=== PATIENT | female | born 1980 | race Caucasian/White ===

== ENCOUNTER 2023-07-19 09:12 | Day surgery (SDC) | payer OTHER, SELFPAY ==
[2023-07-18 08:32] VITALS: BMI 41.5
--- NOTE | 2023-07-19 | PATH_ITS ---
[facility] Accession Number: [id number] No. of containers..02 Tissue . 01 Material submitted: . PART A: endometrium - ENDOMETRIAL CURETTINGS PART B: endocervix - ENDOCERVICAL CURETTINGS . 01 Diagnosis: A. Endometrium, Curettings: Fragments of benign proliferative phase endometrium with breakdown changes. Negative for significant cytologic atypia, hyperplasia, and malignancy. Benign endocervical tissue also present. . B. Endocervix, Curettings: Benign endocervical tissue. Negative for dysplasia and malignancy. MRV 07/24/2023 1644 Local . 01 Electronically signed: . Camila Benton MD, Pathologist NPI- [id number] . 01 Gross description: . Part A: ENDOMETRIAL CURETTINGS: Received in formalin are minute fragments of mucoid and hemorrhagic material measuring 1.2 x 1.2 x 0.4 cm in aggregate. Submitted in toto in 1 cassette. Part B: ENDOCERVICAL CURETTINGS: Received in formalin are minute fragments of mucoid and hemorrhagic material measuring 0.5 x 0.5 x 0.2 cm in aggregate. Submitted in toto in 1 cassette. /JODIE 07/20/2023 1848 Local . 01 Pathologist provided ICD-10: N92.4, F52.5 . 01 CPT . 151703, 204116 Specimen Comment: A courtesy copy of this report has been sent to [phone] Performed at: 01 [facility] [address] [place] [address], [place], [place] [id number] MD Paramjit Mckenzie MD Phone: [phone]
[2023-07-19 09:33] VITALS: BP 140/85; PULSE 85; RESP 16; TEMP 36.4; O2SAT 100; BMI 41.5
[2023-07-19] MEDS: LACTATED RINGERS 1,000 ML 150 ML IV (09:52)
[2023-07-19] MEDS: SCOPOLAMINE 1 PATCH TOP (09:53)
--- NOTE | 2023-07-19 10:14 | PM.PREOP ---
Pre-operative Note COVID-19 COVID-19 status: Not tested Interval Note History & Physical reviewed/Exam performed by Physician: Yes Changes to H&P: No
--- NOTE | 2023-07-19 10:15 | P.HPOB_ITS ---
History of Present Illness History of Present Illness Reason for admission: vaginal bleeding Narrative: Jessica is a 43-year-old A1, LMP 04/25/2023 who presents in referral from [facility] in [place] for progressively heavy menses associated with severe PMS since her 2nd in 2015. Menarche occurred at age 10 and the patient was on oral contraceptives for a number of years for menstrual regulation. When she was off oral contraceptives however her menses were extremely irregular and following her last delivery in 2015, her had a vasectomy performed and therefore she herself no longer uses any form of control. Her menses now are occurring at about a 21 day interval and lasting at least 5-7 days with heavy flow, accidents, and passage of clots. In addition for at least a week prior to each episode of bleeding, she has severe PMS with profound mood changes which improve at the onset of her menses and also severe cramping for a week prior to her menses with the cramping continuing virtually through the entire menses. The patient has not had any pelvic imaging or endometrial biopsy to this point because she has severe vaginismus and does not tolerate pelvic exams at all. Her last Pap, performed after her last delivery, was extremely difficult and she is still traumatized by the experience. [place] is possible but all other vaginal touching or attempts at vaginal entry provoked severe, uncontrollable muscle spasms and her highly traumatic. Patient had a D&C performed in 2013 following a missed/incomplete AB and she also remains traumatized from that experienced. The patient does not experience intermenstrual bleeding or postcoital bleeding, but does have a 3 generation history of uterine cancer. Her great grandmother of her disease in her late 50s or early 60s, her grandmother developed uterine cancer in her late 50s, and her mother also developed uterine cancer in her 50s. The patient is understandably concerned about the possibility her bleeding being associated with the development or existence of endometrial carcinoma. Because of vasomotor symptoms and extreme mood instability, the patient was initiated on transdermal estradiol and oral progesterone by her provider at [facility]. While the estradiol has provided extremely beneficial results insofar as mitigating her vasomotor symptoms and stabilizing her moods, she could not tolerate the progesterone and therefore discontinued it. After counseling and consent duration of all options, the patient has agreed to proceed with hysteroscopy and D&C at which time Pap smear will also be performed. She is admitted now for these procedures. [facility] Medical History (Updated 07/18/23 @ 08:38 by Rosario Ladd RN) HTN (hypertension) Anxiety Depression Surgical History (Updated 07/18/23 @ 08:38 by Rosario Ladd RN) Hx of dilation and curettage (2013) History of 2 sections Hx of cholecystectomy (2014) Social History household members: spouse Smoking Status: Former smoker alcohol intake: current Meds Home Medications and Allergies Home Medications Medication Instructions Recorded Confirmed Type clonazepam 0.125 mg disintegrating 0.125 mg PO DAILY 05/24/23 07/19/23 History tablet estradiol 0.05 mg/24 hr semiweekly 1 patch transdermal 2XW 05/24/23 07/19/23 History transdermal patch fluoxetine 20 mg capsule 20 mg PO DAILY 05/24/23 07/19/23 History lamotrigine 100 mg tablet 100 mg PO DAILY 05/24/23 07/19/23 History lisinopril 5 mg tablet 5 mg PO DAILY 05/24/23 07/19/23 History omeprazole 20 mg capsule,delayed 20 mg PO DAILY 05/24/23 07/19/23 History release semaglutide 0.25 mg or 0.5 mg (2 0.25 mg SUBCUT QWEEK 05/24/23 07/19/23 History mg/3 mL) subcutaneous pen injector (Ozempic) Allergies Allergy/AdvReac Type Severity Reaction Status Date / Time No Known Drug Allergies Allergy Unverified 05/24/23 08:56 Review of Systems Review of Systems Narrative: Problem-specific ROS positives included in HPI Exam Vital Signs (past 8 hours): - 07/19/23 09:33 Temperature 97.5 F L Pulse Rate 85 Respiratory Rate 16 Blood Pressure 140/85 Pulse Oximetry 100 Oxygen Delivery Method Room Air Oxygen Delivery Method Room Air Const General: cooperative and anxious Nutritional Appearance: average body habitus Orientation: alert and oriented x3 HENMT Head: normal to inspection, normocephalic and atraumatic Eyes General: appearance normal, both eyes and all related structures Resp Effort & Inspection: normal respiratory effort and able to speak in complete sentences Auscultation: clear to auscultation bilaterally Cardio Rate: regular rate Rhythm: regular rhythm Heart Sounds: S1 normal, S2 normal and no murmurs GI Inspection: normal to inspection Palpation: soft and no hepatosplenomegaly External Female Exam: other (Deferred per patient preference) Extrem Right lower extremity: normal to inspection Assessment & Plan Assessment and plan (1) Perimenopausal menorrhagia: Status: Acute (2) Vaginismus (not due to a general medical condition): Status: Acute (3) Family history of malignant neoplasm of endometrium: Status: Acute Plan Patient counseled regarding alternatives, risks, benefits, and potential complications associated with hysteroscopy and dilation and curettage uterus. In addition patient counseled regarding the need for Pap smear in that too will be performed at the time of surgery. With full understanding of the above, a written consent was executed, signed, witnessed this date. Time Spent With Patient Time with patient: less than 30 minutes
--- NOTE | 2023-07-19 10:59 | SUR.OPER ---
Lithotomy on padded OR bed, head on pillow, arms secured on padded arm boards at <90 degrees abduction. Legs secured in padded yellow fins stirrups.
[2023-07-19] MEDS: ACETAMINOPHEN IV 1,000 MG/100 ML VIAL 400 MG IV (11:09)
[2023-07-19 11:18] VITALS: BP 120/79; PULSE 80; RESP 22; TEMP 36.8; O2SAT 99
[2023-07-19 11:21] VITALS: BP 133/86; PULSE 86; RESP 15; TEMP 36.8; O2SAT 100
[2023-07-19 11:25] VITALS: BP 133/75; PULSE 81; RESP 12; TEMP 36.7; O2SAT 98
--- NOTE | 2023-07-19 11:27 | P.OP_ITS ---
Operative Date/Time/Diagnoses Date of procedure: 07/19/23 Time of procedure: 10:35 Pre-op diagnosis: Perimenopausal menorrhagia Vaginismus Family history of endometrial cancer Post-op diagnosis: same Procedure & Clinicians Procedure: Procedures Operation Date: 07/19/23 10:15 Actual Procedure Side Surgeon jesusita SABA with Possible Biopsy, D&C of the uterus, PAP smear, Hysteroscopy Gian Samayoa MD Indications: Jessica is a 43-year-old A1, LMP 04/25/2023 who presents in referral from [employer] in [place] for progressively heavy menses associated with severe PMS since her 2nd in 2015. Menarche occurred at age 10 and the patient was on oral contraceptives for a number of years for menstrual regulation. When she was off oral contraceptives however her menses were extremely irregular and following her last delivery in 2015, her had a vasectomy performed and therefore she herself no longer uses any form of control. Her menses now are occurring at about a 21 day interval and lasting at least 5-7 days with heavy flow, accidents, and passage of clots. In addition for at least a week prior to each episode of bleeding, she has severe PMS with profound mood changes which improve at the onset of her menses and also severe cramping for a week prior to her menses with the cramping continuing virtually through the entire menses. The patient has not had any pelvic imaging or endometrial biopsy to this point because she has severe vaginismus and does not tolerate pelvic exams at all. Her last Pap, performed after her last delivery, was extremely difficult and she is still traumatized by the experience. [place] is possible but all other vaginal touching or attempts at vaginal entry provoked severe, uncontrollable muscle spasms and her highly traumatic. Patient had a D&C performed in 2013 following a missed/incomplete AB and she also remains traumatized from that experienced. The patient does not experience intermenstrual bleeding or postcoital bleeding, but does have a 3 generation history of uterine cancer. Her great grandmother of her disease in her late 50s or early 60s, her grandmother developed uterine cancer in her late 50s, and her mother also developed uterine cancer in her 50s. The patient is understandably concerned about the possibility her bleeding being associated with the development or existence of endometrial carcinoma. Because of vasomotor symptoms and extreme mood instability, the patient was initiated on transdermal estradiol and oral progesterone by her provider at [facility]. While the estradiol has provided extremely beneficial results insofar as mitigating her vasomotor symptoms and stabilizing her moods, she could not tolerate the progesterone and therefore discontinued it. After counseling and consent duration of all options, the patient has agreed to proceed with hysteroscopy and D&C at which time Pap smear will also be performed. She is admitted now for these procedures. Surgeon: Gian Samayoa Anesthesia Type: General Operative Notes Findings: Bimanual examination under anesthesia is unremarkable with the uterus retroverted and normal in size and shape. The ovaries could not be palpated. The cervix appears unremarkable as does the endocervical canal. Within the endometrial cavity, the vast majority of the endometrial surface is bland but th ere were several irregularly shaped small polypoid growths within the endometrial cavity which were not removed hysteroscopically but rather with aggressive curettage of the endometrial cavity. Closure Type: not applicable Specimen(s): endometrial curettings and other (Endocervical curettings) Estimated blood loss (mL): 25 Blood products transfused: none Procedure in detail: A pre-surgical safety time-out was then taken in accordance with [facility] OR protocols. With the patient under general LMA in the modified dorsal lithotomy position, a medium Sandy speculum was placed in the vagina and a Pap smear obtained. ,The perineum, vagina, and lower abdomen were then prepped and draped in the usual fashion for hysteroscopy with D&C. A bivalve speculum was inserted in the vagina and the cervix visualized. The anterior lip of the cervix was grasped with a single-tooth tenaculum and the endocervical canal was then dilated to 6 mm diameter. Hysteroscope was placed through the endocervical canal into the endometrial cavity and the cavity was visualized. Findings within the endometrial cavity are detailed above. Both tubal ostia were visualized. The hysteroscope was then withdrawn and a fractional dilation and curettage was accomplished with separate pathologic specimen submitted for the endometrial and endocervical curettings. The tenaculum was then removed from the anterior lip of the cervix and no bleeding was encountered. The speculum was then removed from the vagina and the patient awakened from anesthesia. She was then transferred to the PACU for a period of observation and recovery having tolerated the procedure well. Complications: none Post-operative Condition: stable Disposition: PACU Plan for aftercare: Routine post-op care.
[2023-07-19 11:30] VITALS: BP 135/76; PULSE 80; RESP 18; O2SAT 99
== END 2023-07-19 11:47 | disposition home or self-care (01) ==
PROVIDERS: PCP Registered Nurse; Referring Provider Obstetrics & Gynecology; Visit Provider Obstetrics & Gynecology
PROC: 0UDB8ZZ Extraction of Endometrium, Via Natural or Artificial Opening Endoscopic (ICD-10-PCS; CPT 58558; principal; 2023-07-19 10:15)
DX: N92.0 Excessive and frequent menstruation with regular cycle (principal); F52.5 Vaginismus not due to a substance or known physiological condition; Z80.8 Family history of malignant neoplasm of other organs or systems
CPT/HCPCS: 58558; J0131; J1100; J1885; J2405; J2704; J3010; J3490

== ENCOUNTER 2023-10-25 08:07 | Day surgery (SDC) | payer OTHER, SELFPAY ==
[2023-10-22 09:50] VITALS: BMI 39.6
[2023-10-25] VITALS (11 sets, daily range): BP systolic 115–143; BP diastolic 69–85; PULSE 78–101; RESP 11–17; TEMP 36.2–36.4; O2SAT 90–98; BMI 39.6
--- NOTE | 2023-10-25 | PATH_ITS ---
[facility] Accession Number: [id number] No. of containers..01 Tissue . 01 Material submitted: . uterus - UTERUS WITH BILATERAL FALLOPIAN TUBES . 01 Diagnosis: A. Uterus, Bilateral Fallopian Tubes, Hysterectomy and Bilateral Salpingectomy: Myometrium with leiomyomata (1 cm). Late proliferative/early secretory-phase endometrium. Cervix with inflammation and extensive reactive changes. Serosa within normal limits. Bilateral fallopian tubes within normal limits. No evidence of dysplasia, significant cytologic atypia, or malignancy. MRV 10/29/2023 1515 Local . 01 Electronically signed: . Nurys Gunter MD, Pathologist NPI- [id number] . 01 Gross description: . The specimen is received in formalin labeled with the patient's named, , and uterus with bilateral fallopian tubes, and consists of an intact uterus (94 grams, 7.6 cm from superior to inferior, 6.9 cm from medial to lateral, 3.4 cm from the anterior to posterior), with attached cervix (2.6 x 2.5 cm), two unoriented, fimbriated fallopian tubes (5.9 x 0.4 cm and 4.6 x 0.4 cm respectively), with no additional adnexa. . The ectocervix is pink-ramos, smooth, and glistening with a circular os measuring 0.3 cm in diameter. A purple suture is identified at the 12 o'clock position with no orientation per the requisition. The entire paracervical margin is inked blue while the posterior paracervical margin is inked black. The serosa is armos and smooth with no evidence of hemorrhage or adhesion identified. The endocervical canal has ramos herringbone mucosa and measures 1.9 cm in length. The endometrial cavity measures 4.0 cm from cornu to cornu, and 4.5 cm in length with pink-ramos, velvety endometrium that averages 0.3 cm thick with no lesions identified. The myometrium is ramos and trabecular measuring up to 1.7 cm in maximum thickness with a white, whorled nodule measuring 1.0 cm in greatest dimension located submucosally with no hemorrhage or necrosis identified. . Both tubes have violaceous, smooth serosa with no cystic structures identified, and sectioning reveals unremarkable stellate lumen. . [employer] Instructor sections are submitted as follows: A1: Anterior cervix. A2: Posterior cervix. A3: Anterior full thickness section. A4: Posterior full thickness section. A5: Nodule. A6: Serosa. A7: Longer fallopian tube to include one-half of bisected fimbriae and cross-sections. A8: [place] fallopian tube to include one-half of bisected fimbriae and cross-sections. ([id number]) /ELIE 10/26/2023 0903 Local . 01 Pathologist provided ICD-10: N92.1 . 01 CPT . 243395 Specimen Comment: A courtesy copy of this report has been sent to [phone] Performed at: 01 [facility] [address] [place] [address] [facility], [place], [place] [id number] MD Paramjit Mckenzie MD Phone: [phone]
--- NOTE | 2023-10-25 07:39 | PM.PREOP ---
Pre-operative Note COVID-19 COVID-19 status: Not tested Interval Note History & Physical reviewed/Exam performed by Physician: Yes Changes to H&P: No
[2023-10-25] MEDS: LACTATED RINGERS 1,000 ML 42 ML IV (08:41)
[2023-10-25] MEDS: ACETAMINOPHEN 325 MG TABLET 975 MG PO (08:43)
[2023-10-25] MEDS: SCOPOLAMINE 1 PATCH TOP (08:43)
[2023-10-25] MEDS: CEFAZOLIN 2 GM/100 ML PREMIX 100 ML IV (09:47)
--- NOTE | 2023-10-25 10:15 | SUR.OPER ---
Lithotomy on padded OR bed, head on pillow, arms secured on padded arm boards at <90 degrees abduction. Legs secured in padded yellow fins stirrups.
[2023-10-25] MEDS: BUPIVACAINE 0.5% (PF) 30 ML, EPINEPHrine 0.15 MG INJ (10:26)
--- NOTE | 2023-10-25 12:07 | P.OP_ITS ---
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 Menarche occurred at age 10 and the patient was on oral contraceptives for a number of years for menstrual regulation. When she was off oral contraceptives however her menses were extremely irregular and following her last delivery in 2015, her had a vasectomy performed and therefore she herself no longer uses any form of control. Her menses now are occurring at about a 21 day interval and lasting at least 5-7 days with heavy flow, accidents, and passage of clots. In addition for at least a week prior to each episode of bleeding, she has severe PMS with profound mood changes which improve at the onset of her menses and also severe cramping for a week prior to her menses with the cramping continuing virtually through the entire menses. The patient has not had any pelvic imaging or endometrial biopsy to this point because she has severe vaginismus and does not tolerate pelvic exams at all. Her last Pap, performed after her last delivery, was extremely difficult and she is still traumatized by the experience. [place] is possible but all other vaginal touching or attempts at vaginal entry provoked severe, uncontrollable muscle spasms and her highly traumatic. Patient had a D&C performed in 2013 following a missed/incomplete AB and she also remains traumatized from that experienced. The patient does not experience intermenstrual bleeding or postcoital bleeding, but does have a 3 generation history of uterine cancer. Her great grandmother of her disease in her late 50s or early 60s, her grandmother developed uterine cancer in her late 50s, and her mother also developed uterine cancer in her 50s. The patient is understandably concerned about the possibility her bleeding being associated with the development or existence of endometrial carcinoma. Because of vasomotor symptoms and extreme mood instability, the patient was initiated on transdermal estradiol and oral progesterone by her provider at [facility]. While the estradiol has provided extremely beneficial results insofar as mitigating her vasomotor symptoms and stabilizing her moods, she could not tolerate the progesterone and therefore discontinued it. After counseling and consent duration of all options, the patient decided to proceed with hysteroscopy and D&C at which time Pap smear was also performed on 07/19/2023. The surgery was uncomplicated and pathology obtained showed no hyperplasia, atypia, or neoplasia. Unfortunately the patient's bleeding has continued unabated and she remains very concerned about her irregular and heavy bleeding as well as potential risk of developing endometrial carcinoma over time. Patient reassured that there was no evidence of developing endometrial carcinoma but that due to her history of anovulation, as well as her obesity, does place her at risk for subsequent development of endometrial carcinoma. Patient does not wish to consider progestin secreting IUD placement or Depo- Provera. In addition, she has no interest in exploring endometrial ablation as no assurance can be made that she may not one day develop endometrial carcinoma even though current testing is negative. After discussion of all options, the patient wishes very much to proceed with total laparoscopic hysterectomy and bilateral salpingectomy with ovarian preservation. She presents today for her scheduled surgery. Surgeon: Gian Samayoa Anesthesia Type: General Operative Notes Findings: TNS uterus with changes suggestive of adenomyosis. Both fallopian tubes and ovaries appear normal. There was scarring in the anterior cul-de-sac with no abnormalities in the posterior cul-de-sac and no endometriosis is seen in the pelvis. The remainder of the abdomen pelvis are normal to laparoscopic inspection. Closure Type: primary Specimen(s): left tube, right tube and uterus Applied: catheter Estimated blood loss (mL): 150 Blood products transfused: none Procedure in detail: With the patient in modified dorsal lithotomy position preparations were made by prepping and draping the patient in usual manner for vaginal surgery and insertion of Pressley catheter. A pre-surgical time-out was then taken in accordance with [facility]. A bivalve speculum was then placed in the vagina and the cervix visualized. The anterior lip of the cervix was then grasped with a single-tooth tenaculum. The uterus was sounded to 8 cm, the endocervical canal dilated slightly, and a [employer] uterine manipulator with a smal colpotomy cup was placed. The umbilicus was then infiltrated with 0.5% Marcaine with epinephrine. A 1 cm umbilical incision was made transversely and a Veress needle was used to insufflate the abdominal cavity with carbon dioxide. Once the abdomen was appropriately insufflated, a 5 mm trocar and sleeve were then placed through the umbilical incision. The scope was placed through the trocar and the initial assessment of the intra-abdominal contents carried out. A 2nd and 3rd 5 mm port was then placed 1st in the right mid quadrant from then the left mid quadrant by infiltration of the skin and subcutaneous tissues, a 1 cm transverse incision and insertion of the 5 mm bladeless port. Using a 3 puncture technique, the abdomen and pelvis were inspected laparoscopy and photographically documented. Uterus is mobilized with the [employer] manipulator and attention turned to the left adnexa. The distal tube was then grasped and the fimbria varicose divided after coagulation with the PowerSeal device. The dissection was then carried out toward the cornua and the fallopian tube amputated. The tube was removed through a 5 mm port and dissection was then carried down using the [employer] device so as to divide the utero-ovarian ligament and the round ligament with blunt and sharp dissection of the broad down to the level of the uterine artery. The uterine artery was then skeletonized after development of a bladder flap, coagulated, and divided. Once hemostasis was assured on the left side attention was turned to the right and the tube, utero-ovarian ligament, round ligament, and broad ligament were dissected in a fashion exactly the same as it had been on the left. The right uterine artery was then visualized after skeletonization and coagulated and divided. The uterus was seen to eulogio after coagulation of both your arteries and the cup was identified through the vaginal muscularis at its insertion with the body of the cervix. Circumferential excision of the vaginal cup was accomplished without difficulty using monopolar current and the uterus mobilized. The uterus was then removed through the vagina and a glove containing two 4x4 gauze was placed in the vagina to maintain the pneumoperitoneum. The vaginal cuff was inspected carefully and closed [id number] with 0 PDS stratafix barbed suture carefully incorporating the mucosal and fascial edges along with the uterosacral ligaments and cardinals. Hemostasis was excellent, and the pelvis inspected laparoscopically. The pelvis was inspected for any abnormality or bleeding, and the ureters were each seen to be peristalsing freely. With complete hemostasis assured, the pneumoperitoneum was vented and the ports removed. 20 cc of ropivacaine were placed in the post erior cul-de-sac. The 5 mm ports were removed after venting of the pneumoperitoneum and all of the 5 mm ports were then closed with 4-0 Monocryl on the skin using inverted interrupted sutures. Skin glue was placed and after the glue was dried, an appropriate dressing was applied. The case was then terminated, the patient awakened, and then transferred to PACU after having tolerated the procedure well. Complications: none Post-operative Condition: stable Disposition: PACU Plan for aftercare: Recovery in ambulatory surgery in discharge home later today if pain is under control and she is tolerating oral intake well.
[2023-10-25] MEDS: ONDANSETRON 4 MG/2 ML INJ IV (12:29)
[2023-10-25] MEDS: OXYCODONE IR 5 MG TABLET PO ×2 (12:29→20:19)
[2023-10-25] MEDS: hydrOXYzine 50 MG/ML INJ 25 MG IM (12:29)
[2023-10-25] MEDS: HYDROMORPHONE 1 MG INJ IV (12:30)
[2023-10-25] MEDS: LACTATED RINGERS 1,000 ML 100 ML IV ×2 (13:27→23:08)
--- NOTE | 2023-10-25 14:12 | PC.NURSE ---
Pt to room 225 at 1315 via bed from PACU. Pt oriented to room, call light, bed controls, and tv controls. IV infusing as ordered. Pt denies pain, nausea, or shortness of breath. Bed alarm on for safety. SCd's on and running. Pt agrees to call for assistance as needed.
[2023-10-25] MEDS: ACETAMINOPHEN 325 MG TABLET 650 MG PO ×2 (17:31→23:07)
[2023-10-25] MEDS: DOCUSATE 100 MG CAPSULE 200 MG PO (20:19)
[2023-10-25] MEDS: KETOROLAC 30 MG/ML VIAL IV (23:08)
[2023-10-26] MEDS: OXYCODONE IR 5 MG TABLET PO ×2 (03:34→10:25)
[2023-10-26 04:49] LABS: Add Manual Diff / Slide Review NO; Basophils Absolute Auto 0 /uL (0-100); Basophils Percent Auto 0.1 % (0-2); Eosinophils Absolute Auto 0 /uL (0-450); Eosinophils Percent Auto 0.1 % (2-4); Hemoglobin 10.2 g/dL (12.0-16.0); Lymphocytes Absolute Auto 1300 /uL (1100-4500); Lymphocytes Percent Auto 11.6 % (25-40); Mean Corpuscular Hemoglobin 25.7 PG (26-34); Mean Corpuscular Volume 77.9 fL (80-100); Monocytes Absolute Auto 700 /uL (0-900); Monocytes Percent Auto 5.9 % (3-14); Neutrophils Absolute Auto 9100 /uL (1500-7000); Neutrophils Percent Auto 82.3 % (50-75); Platelet Count 315 X10^3/uL (150-400); Red Blood Cell Count 3.98 X10^6/uL (4.0-5.2); Red Cell Distribution Width 16.3 % (11.6-14.8); White Blood Cell Count 11.1 X10^3/uL (4.5-11.0)
[2023-10-26] MEDS: KETOROLAC 30 MG/ML VIAL IV (05:40)
[2023-10-26] MEDS: PANTOPRAZOLE DR 20 MG TABLET PO (05:41)
[2023-10-26] MEDS: ACETAMINOPHEN 325 MG TABLET 650 MG PO (05:41)
[2023-10-26 08:17] VITALS: BP 123/65; PULSE 75
[2023-10-26] MEDS: FLUoxetine 20 MG CAPSULE PO (08:17)
[2023-10-26] MEDS: DOCUSATE 100 MG CAPSULE 200 MG PO (08:17)
[2023-10-26] MEDS: lisinopriL 5 MG TABLET 10 MG PO (08:17)
[2023-10-26] MEDS: lamoTRIgine 100 MG TABLET PO (08:17)
[2023-10-26] MEDS: METFORMIN HCL 500 MG TABLET PO (08:20)
--- NOTE | 2023-10-26 09:39 | PM.DS.1 ---
History of Present Illness History of Present Illness Date Patient Seen: 10/26/23 Time Patient Seen: 09:40 Chief complaint: TLH w/nika salpingectomy *OPB* Narrative: eJssica is a 43-year-old A1, LMP 10/01/2023 who presented originally in referral from [facility] Chief Security And Safety Officer in [place] for progressively heavy menses associated with severe PMS since her 2nd in 2016. Menarche occurred at age 10 and the patient was on oral contraceptives for a number of years for menstrual regulation. When she was off oral contraceptives however her menses were extremely irregular and following her last delivery in 2015, her had a vasectomy performed and therefore she herself no longer uses any form of control. Her menses now are occurring at about a 21 day interval and lasting at least 5-7 days with heavy flow, accidents, and passage of clots. In addition for at least a week prior to each episode of bleeding, she has severe PMS with profound mood changes which improve at the onset of her menses and also severe cramping for a week prior to her menses with the cramping continuing virtually through the entire menses. The patient has not had any pelvic imaging or endometrial biopsy to this point because she has severe vaginismus and does not tolerate pelvic exams at all. Her last Pap, performed after her last delivery, was extremely difficult and she is still traumatized by the experience. [place] is possible but all other vaginal touching or attempts at vaginal entry provoked severe, uncontrollable muscle spasms and her highly traumatic. Patient had a D&C performed in 2013 following a missed/incomplete AB and she also remains traumatized from that experienced. The patient does not experience intermenstrual bleeding or postcoital bleeding, but does have a 3 generation history of uterine cancer. Her great grandmother of her disease in her late 50s or early 60s, her grandmother developed uterine cancer in her late 50s, and her mother also developed uterine cancer in her 50s. The patient is understandably concerned about the possibility her bleeding being associated with the development or existence of endometrial carcinoma. Because of vasomotor symptoms and extreme mood instability, the patient was initiated on transdermal estradiol and oral progesterone by her provider at [facility] Gynecology. While the estradiol has provided extremely beneficial results insofar as mitigating her vasomotor symptoms and stabilizing her moods, she could not tolerate the progesterone and therefore discontinued it. After counseling and consent duration of all options, the patient decided to proceed with hysteroscopy and D&C at which time Pap smear was also performed on 07/19/2023. The surgery was uncomplicated and pathology obtained showed no hyperplasia, atypia, or neoplasia. Unfortunately the patient's bleeding has continued unabated and she remains very concerned about her irregular and heavy bleeding as well as potential risk of developing endometrial carcinoma over time. Patient reassured that there was no evidence of developing endometrial carcinoma but that due to her history of anovulation, as well as her obesity, does place her at risk for subsequent development of endometrial carcinoma. Patient does not wish to consider progestin secreting IUD placement or Depo-Provera. In addition, she has no interest in exploring endometrial ablation as no assurance can be made that she may not one day develop endometrial carcinoma even though current testing is negative. After discussion of all options, the patient wishes very much to proceed with total laparoscopic hysterectomy and bilateral salpingectomy with ovarian preservation. She presents today for her scheduled surgery. Discharge Providers Provider Discharge Date: 10/26/23 Primary care physician: Lindsay Morales PA-C Discharge provider: Gian Samayoa MD Summary Hospital Course Discharge Diagnosis: Perimenopausal menorrhagia Anemia due to chronic blood loss Hospital Course: The patient was admitted on 10/25/2023 and underwent an uneventful total laparoscopic hysterectomy with bilateral salpingectomy. Full details of the procedure well summarized on my operative note of that date. Following surgery the patient has done extremely well with prompt return of bowel and bladder function, she is ambulating independently, tolerating a regular diet, and her pain is well controlled with oral pain medications. She was discharged at this time to home in an afebrile normotensive condition after counseling regarding precautionary symptoms, limitations of activity, medications, and plans for follow-up which will be in 2 weeks. Preadmission out occlusion use and use [id number] Tylenol and/or ibuprofen as for pain relief. Status at Discharge Cognitive/behavioral status at discharge: oriented Functional status at discharge: independent ambulation Overall status at discharge: patient is progressing back to baseline Time Spent with Patient Time spent: Less than 30 minutes Exam Vital Signs (past 8 hours): - 10/26/23 08:17 Pulse Rate 75 Blood Pressure 123/65 Oxygen Delivery Method Room Air Oxygen Flow Rate 0 Const General: cooperative and comfortable Nutritional Appearance: average body habitus Orientation: alert and oriented x3 HENMT Head: normal to inspection, atraumatic and abrasion Ears: hearing grossly normal bilaterally Face and sinus: face symmetric Eyes General: appearance normal, both eyes and all related structures Conjunctivae: conjunctivae normal Sclera: sclerae normal EOM: EOM intact bilaterally Neck Neck: normal visual inspection Resp Effort & Inspection: normal respiratory effort and able to speak in complete sentences Auscultation: clear to auscultation bilaterally Cardio Rate: regular rate Rhythm: regular rhythm Heart Sounds: S1 normal, S2 normal and no murmurs GI Inspection: normal to inspection and incision (Surgical dressings clean and dry) Palpation: soft, no hepatosplenomegaly and tender (Mild, diffuse postsurgical tenderness) External Female Exam: other (No significant bleeding noted) Extrem General: no calf tenderness Psych Appearance: grossly normal Mental Status: mental status grossly normal Speech and Movement: speech and movement normal Mood: congruent mood Affect: normal affect Attitude: cooperative Thought Process: normal Thought Content: normal Judgment: judgment good Objective Labs 10/26/23 04:13 Labs: Laboratory Results - last 24 hr 10/26/23 04:13 WBC 11.1 H RBC 3.98 L Hgb 10.2 L Hct 31.0 L MCV 77.9 L MCH 25.7 L MCHC 33.0 RDW 16.3 H Plt Count 315 Neut % (Auto) 82.3 H Lymph % (Auto) 11.6 L [place] % (Auto) 5.9 Eos % (Auto) 0.1 L Baso % (Auto) 0.1 Neut # (Auto) 9100 H Lymph # (Auto) 1300 [place] # (Auto) 700 Eos # (Auto) 0 Baso # (Auto) 0 PFSH Medical History (Updated 07/18/23 @ 08:38 by Rosario Ladd RN) HTN (hypertension) Anxiety Depression Surgical History (Updated 07/18/23 @ 08:38 by Rosario Ladd RN) Hx of dilation and curettage (2013) History of 2 sections Hx of cholecystectomy (2014) Social History household members: spouse and children Smoking Status: Former smoker alcohol intake: current Discharge Assessment & Plan Assessment and Plan Assessment: Perimenopausal menorrhagia Anemia due to chronic blood loss Status post total laparoscopic hysterectomy with bilateral salpingectomy. Plan of Treatment: Continue routine postoperative care with follow-up planned for 2 weeks postop Discharge Plan Discharge Plan Patient Disposition: Home Provider Discharge Comment: Please review the written instructions you received when you were discharged from the hospital. Your follow-up appointment will be scheduled for 2 weeks after your surgery and I look forward to seeing you then. If however in the meanwhile you have any, concerns, or problems, please contact us through the office phone at [phone], or via the patient portal. Discharge orders & Medications Discharge Orders: Discharge (Order); Ordered 10/26/23 Ordered By: Gian Samayoa Prescriptions: Continued fluoxetine 20 mg capsule 20 mg PO DAILY lamotrigine 100 mg tablet 100 mg PO DAILY lisinopril 5 mg tablet 10 mg PO DAILY omeprazole 20 mg capsule,delayed release(DR/EC) 20 mg PO DAILY estradiol 0.05 mg/24 hr patch semiweekly 1 patch transdermal 2XW Rx Instructions: apply 1 patch for 3 days alternating with 1 patch for 4 days each week for 3 wks per 4-wk cycle metformin 500 mg Tablet 500 mg PO DAILY Follow up/Referrals: Lindsay Morales PA-C [Primary Care Provider] - Gian Samayoa MD [Physician] - Diet/Activity/Treatments Diet: Diet as Tolerated Activity: As tolerated Other treatments: Atot-bls-cvbpjrt Tylenol and/or ibuprofen may be used as needed for pain relief. Qacg-gcx-gimrqfb stool softeners and/MiraLax may be used as needed for constipation. Skin/Wound/Dressing Care Report to your healthcare provider any signs of infection, such as:: chills, fever, increased pain, unusual drainage and unusual redness Dressing: Dressings should be removed on the morning of 10/27/2023 Visit Report/Discharge Packet Instructions: DI for Hysterectomy, DI for Laparoscopy Stand Alone Forms: Surgery Discharge Print Language: Austrian Discharge Data Primary Care Provider: Lindsay Morales Attending Provider: Gian Samayoa Quality VTE Deep Vein Thrombosis/Pulmonary Embolism Present on Admission: No
--- NOTE | 2023-10-26 10:55 | PC.NURSE ---
Discharge: Pt A&Ox4, VSS, ambulating IND. IV d/c'd, voiding well. Medicated for pain. Questions answered, discharge paperwork discussed, paperwork signed. Pt wheeled via WC to private vehicle by this RN at approximately 10:30.
--- NOTE | 2023-10-26 12:24 | CM.DANOTE ---
Patient is a 43 yo female who was admitted on 10/25/23 for Total Hysterectomy. Pt has Probiod[employer] for insurance and her PCP is Lindsay Morales. EMR was reviewed. Per OBGYN, pt with long hx of significant menstrual bleeding with discomfort and A1 who tolerated hysterectomy well and pain seems controlled and medically stable to d/c home today and no identified barriers to discharge. Per RN, pt voiding independently and ambulating in room with no assist and tolerating diet and no concerns noted. Pt's spouse will provide transport home right before lunchtime. Patient lives in [place] with her spouse and children and is active and independent at baseline and confirms she has assist from spouse and friends once she discharges home and no needs. Plan: Patient to d/c home today via spouse POV and outpt f/u with OBGYN and no further SW needs at this time. 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 Primary Language Croatian Preferred Language Croatian Steam Tank Operator Required No Height 162.56 cm Weight 104.78 kg Body Mass Index (BMI) 39.6 Barriers to Learning None Hx Anesthesia Reactions No Hx Family Anesthesia Reaction No Hx Malignant Hyperthermia No Hx Blood Transfusion Reaction No Anesthesia Review Requested No Mortgage Loan Specialist No alcohol intake current alcohol intake frequency a few times a month Smoking Status Former smoker how long ago did patient quit smoking 2006 Substance Use Type does not use Patient is completely paralyzed or No completely immobile Mental Status Oriented to own ability Is patient on oxygen? No Hx Sleep Apnea No CPAP/BIPAP use not prescribed Currently Taking a Beta [place] No Anti-Coagulant Therapy No Cardiac Testing No Hx Pacemaker/ICD No Pacemaker Rep Required? No Urinary Catheter Present No Hx Urinary Self Catheterization No Diabetes No Patient No Lactating No Presence of External or Internal Medical No Devices Received a COVID vaccine? Yes Marital Status Lives With spouse,children Patient Discharge Plan Description Return Home Advance Directives? No Advance Directives on File No Power of Timber Framer No
== END 2023-10-26 10:30 | disposition home or self-care (01) ==
LOC: OR 08:08 → AC 08:11
PROVIDERS: PCP Physician Assistant; Referring Provider Obstetrics & Gynecology; Visit Provider Obstetrics & Gynecology
PROC: 0UT94ZZ Resection of Uterus, Percutaneous Endoscopic Approach (ICD-10-PCS; CPT 58571; principal; 2023-10-25 09:00)
DX: N92.4 Excessive bleeding in the premenopausal period (principal); I10 Essential (primary) hypertension; K21.9 Gastro-esophageal reflux disease without esophagitis; F41.8 Other specified anxiety disorders; E66.9 Obesity, unspecified; Z68.39 Body mass index [BMI] 39.0-39.9, adult; Z87.891 Personal history of nicotine dependence; Z80.49 Family history of malignant neoplasm of other genital organs
CPT/HCPCS: 58571; 36415; 81025; 85025; J0171; J0690; J1100; J1170; J1885; J2250; J2405; J2704; J3010; J3410